=== PATIENT | female | born 1950 | race Caucasian/White ===

== ENCOUNTER 2017-05-19 15:19 | Emergency (ER) | payer OTHER, MEDICARE ==
[2017-05-19 15:28] VITALS: TEMP 98; BMI 29.0
--- NOTE | 2017-05-19 15:28 | PDOC ---
History of Present Illness - General History Source: Patient Exam Limitations: No Limitations - History of Present Illness Initial Comments: 05/19/17 17:24 The patient is a 67 year old female, with a significant past medical history of hypothyroidism hypertension, migraines and melanoma who presents to the emergency department with acute onset of headache, nasal congestion, runny nose , blurry vision, and jaw pain since this morning. The patient reports sudden onset of a sharp diffuse headache this morning. Patient reports her pain is intermittent and lasts a couple of seconds, and is worse on the right side. She reports associated tearing, nasal congestion, runny nose, post nasal drip, right eye blurry vision, and dry cough, but denies any fever, chills, dizziness , lightheadedness, tinnitus, aura, photophobia, numbness, or tingling. Patient reports her symptoms are similar to when shes had sinusitis in the past, but more severe. Patient states she called her PCP Dr. Monte, 3 days ago for dysuria and possible UTI, and was prescribed Macrobid. However, patient reports diffuse body aches since starting the medication. Patient describes her aches as sharp in nature, and worse in her arms and legs. Patient states she stopped taking Macrobid, and began taking Motrin, Oxycodone, and Ambien for her joint aches, with relief of symptoms. However, today she woke up with her headache. She denies any urinary or bowel incontinence, nausea, vomiting, diarrhea, or constipation. She denies any recent stressors, trauma, travel, or sick contacts. Allergies: NKDA Past Surgical History: Total abdominal hysterectomy, bilateral salpingectomy, right knee arthroscopy Social History: Non smoker. No ETOH or recreational drug use. PCP: Dr. Monte <Janak Rosales - Last Filed: 05/19/17 17:37> <Dennise Tovar - Last Filed: 05/19/17 19:06> - General Chief Complaint: Headache Stated Complaint: headh ahce and neck pain Time Seen by Provider: 05/19/17 15:24 Past History <Janak Rosales - Last Filed: 05/19/17 17:37> - Past Medical History Anemia: No Asthma: No Cancer: Yes (MELANOMA RIGHT ARM) Cardiac Disorders: No CVA: No COPD: No CHF: No DVT: No Dementia: No Diabetes: No GI Disorders: No Disorders: No HTN: Yes (noncompliant on medications) Hypercholesterolemia: No Liver Disease: No Seizures: No Thyroid Disease: Yes (HYPO) - Surgical History Abdominal Surgery: Yes (NAVDEEP BSO) Appendectomy: No Cardiac Surgery: No Cholecystectomy: No Lung Surgery: No Neurologic Surgery: No Orthopedic Surgery: Yes (R KNEE ARTHROSCOPY-2013) - Immunization History Td Vaccination: Yes Immunization Up to Date: Yes - Suicide/Smoking/Psychosocial Hx Smoking Status: No Smoking History: Former smoker Have you smoked in the past 12 months: No Number of Cigarettes Smoked Daily: 10 If you are a former smoker, when did you quit?: AT AGE 16 Information on smoking cessation initiated: No Hx Alcohol Use: Yes (occasional wine) Drug/Substance Use Hx: No Substance Use Type: None Hx Substance Use Treatment: No <Dennise Tovar - Last Filed: 05/19/17 19:06> - Past Medical History Allergies/Adverse Reactions: Allergies Allergy/AdvReac Type Severity Reaction Status Date / Time No Known Drug Allergies Allergy Verified 05/19/17 15:20 SEASONAL Allergy Mild NASAL Uncoded 09/15/13 07:54 CONGESTION/COOUGH Home Medications: Ambulatory Orders Calcium (Oyster Shell) [Elemental Calcium [Nf]] 600 mg PO BID tablet 08/05/12 Cholecalciferol (Vitamin D3) [Vitamin D3] 1,000 unit PO DAILY tablet 07/07/13 Estradiol 1 mg PO Q2D tablet 10/28/16 Amoxicillin/Potassium Clav [Augmentin 875-125 Tablet] 1 each PO BID #20 tablet 05/19/17 Review of Systems - Review of Systems Able to Perform ROS?: Yes Comments:: 05/19/17 17:26 GENERAL/CONSTITUTIONAL: No fever or chills. No weakness. HEAD, EYES, EARS, NOSE AND THROAT: Yes blurry vision, runny nose, post nasal drip, nasal congestion. No ear pain or discharge. No sore throat. CARDIOVASCULAR: No chest pain or shortness of breath. RESPIRATORY: Yes cough. No wheezing, or hemoptysis. GASTROINTESTINAL: No nausea, vomiting, diarrhea or constipation. GENITOURINARY: No dysuria, frequency, or change in urination. MUSCULOSKELETAL: Yes diffuse joint aches, jaw pain. No muscle swelling or pain. No neck or back pain. SKIN: No rash NEUROLOGIC: Yes headache. No numbness, paresthesias, vertigo, loss of consciousness, or change in strength/sensation. ENDOCRINE: No increased thirst. No abnormal weight change. HEMATOLOGIC/LYMPHATIC: No anemia, easy bleeding, or history of blood clots. ALLERGIC/IMMUNOLOGIC: No hives or skin allergy. <Janak Rosales - Last Filed: 05/19/17 17:37> *Physical Exam - Vital Signs Last Vital Signs Temp Pulse Resp BP Pulse Ox 98 F 75 18 176/94 99 05/19/17 15:20 05/19/17 15:20 05/19/17 15:20 05/19/17 15:20 05/19/17 15:20 - Physical Exam Comments: 05/19/17 17:37 GENERAL: Awake, alert, and fully oriented, in mild distress. Patient is tearful on exam. HEAD: No signs of trauma. Mild tenderness to palpation of sinuses. EYES: Tearing from right eye. PERRLA, EOMI, sclera anicteric, conjunctiva clear ENT: Auricles normal inspection, hearing grossly normal, nares patent, oropharynx clear without exudates. Moist mucosa NECK: Normal ROM, supple, no lymphadenopathy, JVD, or masses LUNGS: Breath sounds equal, clear to auscultation bilaterally. No wheezes, and no crackles HEART: Regular rate and rhythm, normal S1 and S2, no murmurs, rubs or gallops ABDOMEN: Soft, nontender, normoactive bowel sounds. No guarding, no rebound. No masses EXTREMITIES: Normal range of motion, no edema. No clubbing or cyanosis. No cords, erythema, or tenderness NEUROLOGICAL: Cranial nerves II through XII grossly intact. Normal speech, normal gait SKIN: Warm, Dry, normal turgor, no rashes or lesions noted. <Janak Rosales - Last Filed: 05/19/17 17:37> - Vital Signs Last Vital Signs Temp Pulse Resp BP Pulse Ox 98 F 75 18 176/94 99 05/19/17 15:20 05/19/17 15:20 05/19/17 15:20 05/19/17 15:20 05/19/17 15:20 <Dennise Tovar - Last Filed: 05/19/17 19:06> ED Treatment Course - RADIOLOGY Radiograph Interpretation: 05/19/17 17:30 EXAM: Head CT INTERPRETED BY: Dr. Morales REVIEWED BY: Dr. Tovar IMPRESSION: Mild volume loss mainly in the high convexity without evidence of acute intracranial pathology. - Medications Given in the ED: ED Medications Discontinued Medications Generic Name Dose Route Start Last Admin Trade Name Willq PRN Reason Stop Dose Admin Oxycodone/Acetaminophen 2 combo 05/19/17 16:48 05/19/17 17:03 Percocet 5/325 - PO 05/19/17 16:49 2 combo ONCE ONE Administration <Janak Rosales - Last Filed: 05/19/17 17:37> Medical Decision Making - Medical Decision Making 05/19/17 17:51 pt presents to the ED complaining of R sided headache and tearing of her R eye. Has history of similar headache--had migraines that resolved as a teenager. Given toradol in PMD's office this morning without relief. INitial differential included ICH and malignancy, so Ct performed and is negative for tumor, ICH or sinusitis. symptoms are not consistent with temporal arteritis, but given her age, will check ESR. May be secondary to migraine--will treat with reglan and toradol and reassess. <Dennise Tovar - Last Filed: 05/19/17 19:06> *DC/Admit/Observation/Transfer - Attestations Scribe Attestion: 05/19/17 17:26 Documentation prepared by Janak Rosales, acting as biomedical service engineer for Dennise Tovar MD. <Janak Rosales - Last Filed: 05/19/17 17:37> - Discharge Dispostion Admit: No <Dennise Tovar - Last Filed: 05/19/17 19:06> Diagnosis at time of Disposition: Headache - Discharge Dispostion Disposition: HOME Condition at time of disposition: Good - Prescriptions Prescriptions: Amoxicillin/Potassium Clav [Augmentin 875-125 Tablet] 1 each PO BID #20 tablet - Referrals Referrals: Maximilian Monte MD [Staff Physician] - - Patient Instructions Printed Discharge Instructions: DI for Headache Additional Instructions: return to the ED for worsening headache, headache with fever, passing out or seizures, confusion, severe nausea and vomiting, other new or worsening symptoms. Call Dr. Monte if your headache is still there tomorrow.
[2017-05-19] MEDS ORDERED: METOCLOPRAMIDE HCL INJECTION 10 MG/2 ML VIAL IVPUSH ONE (17:29)
[2017-05-19] MEDS ORDERED: KETOROLAC TROMETHAMINE 30 MG/1 ML VIAL IVPUSH ONE (17:29)
[2017-05-19 19:13] VITALS: BP 150/67; PULSE 66
== END 2017-05-19 19:13 | disposition home or self-care (01) ==
LOC: FER 15:19
PROC: 3E033GC Introduction of Other Therapeutic Substance into Peripheral Vein, Percutaneous Approach (ICD-10-PCS; principal; 2017-05-19)
DX: R51 Headache (principal)
CPT/HCPCS: 36415; 70450-TC; 80053; 81003; 85025; 85651; 86140; 87086; 87804; 96374; 99282-25

== ENCOUNTER 2018-11-25 07:30 | Day surgery (SDC) | payer OTHER, MEDICARE ==
[2018-11-19 09:40] VITALS: BMI 29.8
[2018-11-25] MEDS ORDERED: LIDOCAINE HCL/PF 2% SDV 5ML VIAL ONE (08:01)
[2018-11-25] MEDS ORDERED: PROPOFOL 20 ML ONE ×2 (08:01)
[2018-11-25 09:43] VITALS: BP 124/59; PULSE 56; TEMP 98.9
== END 2018-11-25 09:20 | disposition home or self-care (01) ==
LOC: FASU-ENDO 07:30
PROVIDERS: ATTEND Internal Medicine Gastroenterology
PROC: 0DJD8ZZ Inspection of Lower Intestinal Tract, Via Natural or Artificial Opening Endoscopic (ICD-10-PCS; principal; 2018-11-25 08:27)
DX: Z86.010 Personal history of colon polyps (principal); K57.30 Diverticulosis of large intestine without perforation or abscess without bleeding; K64.8 Other hemorrhoids; K64.4 Residual hemorrhoidal skin tags

== ENCOUNTER 2023-12-24 07:51 | Day surgery (SDC) | payer OTHER, MEDICARE ==
[2023-12-17 16:06] VITALS: BMI 28.2
[2023-12-24] MEDS ORDERED: PROPOFOL 160 ML ONE (07:56)
[2023-12-24] MEDS ORDERED: LIDOCAINE HCL/PF 2% SDV 5ML VIAL ONE (07:56)
[2023-12-24] MEDS ORDERED: ONDANSETRON 4 MG/2 ML VIAL ONE (08:26)
[2023-12-24 08:47] VITALS: TEMP 97.1
[2023-12-24 08:49] VITALS: BP 118/60; PULSE 68; RESP 20
== END 2023-12-24 09:10 | disposition home or self-care (01) ==
LOC: FASU-ENDO 07:51
PROVIDERS: ATTEND Internal Medicine Gastroenterology
PROC: 0DJD8ZZ Inspection of Lower Intestinal Tract, Via Natural or Artificial Opening Endoscopic (ICD-10-PCS; principal; 2023-12-24 08:17)
DX: Z12.11 Encounter for screening for malignant neoplasm of colon (principal); K57.30 Diverticulosis of large intestine without perforation or abscess without bleeding; Z86.010 Personal history of colon polyps